=== PATIENT | female | born 1970 | race Caucasian/White ===

== ENCOUNTER 2017-05-10 16:09 | Emergency (ER) | payer OTHER, BC ==
[~2017-05-10] VITALS: Ht 162.6 cm; Wt 78.4 kg
[~2017-05-10 16:09] MED LIST: ASPIR-LOW81 MG PO; DOXYCYCLINE HY100 M3 PO; METOPROLOL SUCC50 MG; PANTOPRAZOLE SO40 MG; PROAIR HFA8.5 GM IH; ZYRTEC10 M3 PO
[2017-05-10 17:28] LABS: HEMATOCRIT 42.5 % (36.0-46.0); MCHC 34.6 G/DL (30.0-36.0); MCV 92.4 FL (83-99); PLATELET COUNT 243 K/uL (156-360); RBC DIS.WIDTH-CV 12.9 % (11.8-14.6); RBC DIS.WIDTH-SD 43.8 % (39-53); WHITE BLOOD COUNT 13.2 K/uL (4.1-10.2)
[2017-05-10 17:45] LABS: CHLORIDE 106 mEq/L (99-109); SODIUM 138 mEq/L (136-147)
[2017-05-10 17:47] LABS: GLUCOSE 104 mg/dL (70-99)
[2017-05-10 17:49] LABS: ANION GAP 8 MEQ/L (2-14)
[2017-05-10 17:51] LABS: GFR ESTIMATE (CALCULATED) > 59 mL/min/; TROP-I INTERPRETATION NEGATIVE; TROPONIN-I < 0.01 ng/mL (0.0-0.30)
[2017-05-10 17:52] LABS: UREA NITROGEN (BUN) 12 mg/dL (9-23)
[2017-05-10] MEDS ORDERED: FLEXERIL10 MG PO (18:11)
[2017-05-10] MEDS ORDERED: MOTRIN800 MG PO (18:11)
[2017-05-10 18:15] LABS: ADD MIUA? NO; BILIRUBIN NEGATIVE; BLOOD NEGATIVE; COLOR YELLOW ((YELLOW)); GLUCOSE (STRIP) NEGATIVE; KETONES NEGATIVE; LEUKOCYTES NEGATIVE; NITRITE NEGATIVE; PROTEIN (STRIP) NEGATIVE; SPECIFIC GRAVITY 1.016 (1.000-1.030); UROBILINOGEN 0.2 MG/DL (0.2-1.0)
[2017-05-10 18:30] VITALS: BP 96/69
== END 2017-05-10 20:12 | disposition home or self-care (01) ==
LOC: EME 16:09
PROVIDERS: Nurse Practitioner Family
DX: S00.03XA Contusion of scalp, initial encounter (principal); S20.211A Contusion of right front wall of thorax, initial encounter; S39.011A Strain of muscle, fascia and tendon of abdomen, initial encounter; V43.62XA Car passenger injured in collision with other type car in traffic accident, initial encounter; Y92.410 Unspecified street and highway as the place of occurrence of the external cause; F17.200 Nicotine dependence, unspecified, uncomplicated
CPT/HCPCS: 70450; 71260; 74177; 80048; 81003; 84484; 85027; 93005; 99281; 99285; J1885; J7030